=== PATIENT | male | born 1975 | race Caucasian/White ===

== ENCOUNTER 2019-03-17 13:00 | Day surgery (SDC) | payer BC ==
[2019-03-17] MEDS ORDERED: FENTAnyl 50 MCG/ML VIAL (15:36)
[2019-03-17] MEDS ORDERED: PROPOFOL 60 ML (15:36)
[2019-03-17] MEDS ORDERED: PROPOFOL 200 MG INJ (15:36)
[2019-03-17] MEDS ORDERED: LIDOCAINE 100 MG SYRINGE (15:36)
[2019-03-17] MEDS: HYOSCYAMINE 0.125 MG SUBL TAB SL (16:50)
== END 2019-03-17 18:14 | disposition home or self-care (01) ==
LOC: GIL 13:00
DX: R19.4 Change in bowel habit (principal); K64.8 Other hemorrhoids; D12.8 Benign neoplasm of rectum; K20.8 Other esophagitis; E11.9 Type 2 diabetes mellitus without complications; I10 Essential (primary) hypertension; E78.5 Hyperlipidemia, unspecified; E66.01 Morbid (severe) obesity due to excess calories; Z68.43 Body mass index [BMI] 50.0-59.9, adult
CPT/HCPCS: 43239; 82962; 88305